=== PATIENT | female | born 1950 | race Caucasian/White ===

== ENCOUNTER 2021-01-08 10:57 | Outpatient (CLI) | payer MEDICARE, OTHER, SELFPAY ==
--- NOTE | ~2021-01-08 | US_ITS ---
EXAMINATION: US venous doppler [facility] DATE: 01/08/2021 11:30 INDICATION: Left lower limb pain and swelling. TECHNIQUE: Grayscale ultrasound images without and with compression and Doppler ultrasound images of the left lower extremity veins were obtained. COMPARISON: None. FINDINGS: The visualized portions of left common femoral vein, profunda (deep) femoral vein, femoral vein, popl iteal vein, peroneal veins, posterior tibial veins, and greater saphenous vein outflow are patent. IMPRESSION: 1. No deep venous thrombosis. Reviewed, dictated and finalized at location A. TERY WARDEN
== END 2021-01-08 10:58 | disposition home or self-care (01) ==
PROVIDERS: PCP Internal Medicine; Visit Provider Nurse Practitioner
DX: R60.9 Edema, unspecified (principal)
CPT/HCPCS: 93971

== ENCOUNTER → 2021-08-23 12:56 | Outpatient (CLI) | payer MEDICARE, OTHER, SELFPAY ==
--- NOTE | ~2021-08-23 | XR_ITS ---
EXAMINATION: XR thoracic spine 3V DATE: 08/23/2021 14:50 INDICATION: Thoracic back pain TECHNIQUE: AP, lateral and lateral swimmer's views of the thoracic spine were obtained. COMPARISON: None. FINDINGS: There is no fracture, dislocation, or subluxation. The vertebral body heights are maintaine d. There is mild loss of intervertebral disc space height at multiple levels in the thoracic spine. S mall degenerative osteophytes project from the anterior endplates of multiple vertebral bodies. IMPRESSION: 1. Mild thoracic spondylosis without acute findings. Reviewed, dictated and finalized at location A.
--- NOTE | ~2021-08-23 | MM_ITS ---
EXAMINATION: MM screening taiwo BI w molina HISTORY: Screening mammogram TECHNIQUE: Craniocaudal and mediolateral oblique 3-D tomosynthesis images were obtained and synthetic 2-D images were generated. CAD analysis was submitted and interpreted. COMPARISON: 08/11/2019 bilateral digital screening mammogram 01/12/2018 diagnostic left mammogram and limited left breast ultrasound 12/31/2017, 11/27/2016 bilateral digital screening mammogram examinations BREAST PARENCHYMAL COMPOSITION: There are scattered areas of fibroglandular density. FINDINGS: Stable mild fibroglandular asymmetry. There is no evidence of suspicious mass, calcificatio n, or architectural distortion to suggest malignancy in either breast. There has been no suspicious i nterval change. IMPRESSION: 1. No mammographic evidence of malignancy. 2. Recommend routine screening mammography in one year. BI-RADS Category 2: Benign finding(s). Reviewed, dictated and finalized at location A.
--- NOTE | ~2021-08-23 | DEXA_ITS ---
Bone Density Report Name: Jama Dimas Age: 71 Sex: Female Ethnicity: White Date of : 1950 Indication: postmenopausal; screening for osteoporosis; height loss; Referring Provider: Ashleigh Vega Study: Bone densitometry was performed. Exam Date: August 23, 2021 Accession number: [id number] Bone Density: Region BMD T-score Z-score Classification AP Spine (L1, L2, L3) 1.138 1.1 3.4 Normal Femoral Neck (Left) 0.787 -0.6 1.4 Normal Total Hip (Left) 0.918 -0.2 1.5 Normal Femoral Neck (Right) 0.803 -0.4 1.6 Normal Total Hip (Right) 0.928 -0.1 1.6 Normal Total Hip Mean 0.923 -0.2 1.6 Normal World Health Organization criteria for BMD impression classify patients as: Normal (T-score at or above -1.0), Osteopenia (T-score between -1.0 and -2.5), or Osteoporosis (T-score at or below -2.5). 10-year Fracture Risk: FRAX not reported because: All T-scores for Spine Total, Hip Total, Femoral Neck at or above -1.0 Clinical Information Provided by Patient: Has used the following medications: Vitamin D, Calcium, MTV, SYNTHROID Patient maximum height was 67.0 Menopause Age: 47 Drinks caffeinated beverages Onset of menses at age 9 Number of children 3 Impression: The patient has normal bone mass. Discussion: BONE DENSITY IS ABOVE THE MINIMUM DESIRABLE LEVEL AT ALL SKELETAL SITES TESTED. This patient?s bone mineral density is above the minimum desirable level (T-score -1.0 or better) at all sites measured. The patient should follow a healthful lifestyle (good nutrition with adequate calcium and vitamin D, and appropriate weight-bearing exercise). Follow-Up: Consider repeating this study in 5 years or sooner if there is some new clinical indication. Reported by: MILY on 08/23/2021 1:56:00 PM. Reviewed, dictated and finalized at location A.
== END ==
PROVIDERS: PCP Internal Medicine; Visit Provider Nurse Practitioner
DX: Z12.31 Encounter for screening mammogram for malignant neoplasm of breast (principal); Z78.0 Asymptomatic menopausal state; M47.894 Other spondylosis, thoracic region
CPT/HCPCS: 72072; 77063; 77067; 77080

== ENCOUNTER 2021-09-11 11:00 | Outpatient (RCR) | payer MEDICARE, OTHER, SELFPAY ==
--- NOTE | 2021-08-01 15:05 | PTOPEVAL ---
PHYSICAL THERAPY EVALUATION AND PLAN OF CARE 08-01-21 Thank you for referring Jama Dimas to [facility], for the diagnosis of B LE lymphedema. She is scheduled to be seen for therapy? 2 x/week for 5 weeks. Please review, sign, date and return this plan of care CHONG. I agree with and certify that the following plan of care is medically necessary. Referring Physician Date Attending Provider: Bryant Mojica DO PT Outpatient Evaluation Document 08/01/21 13:30 CHAVEZ (Rec: 08/01/21 15:04 CHAVEZ [id number]) Past Medical History Source of Past Medical History Patient Neurological History Hx Neurological Disorders No Significant History Cardiovascular History Hx Cardiac Disorders No Significant History Respiratory History Hx Respiratory Disorders No Significant History Gastrointestinal History Hx Cholecystectomy Yes Hx Gastric Bypass Surgery Yes: 5 year ago--lost 163# Genitourinary History Hx Bladder Surgery Yes: tie up surgery Musculoskeletal History Hx Arthritis Yes: knees and ankle Endocrine History Hx Hypothyroidism Yes: meds HEENT History Hx Other HEENT Disorders Yes: glasses Integumentary History Hx Skin Disorders No Significant History Other History Hx Other Medical Conditions Yes: have had covid vaccine Evaluation Information Problem Diagnosis B LE lymphedema Onset 6 months ago Prior Level of Function Activity Level (Last 3 Months) Occupation retired Activity of Daily Living Ability Independent Indoor/Home Mobility Independent Community Mobility Independent Stairs Ability Independent Functional Cognition (Planning, Shopping Independent , Taking Medications) Cooking Yes Cleaning Yes Laundry Yes Shopping Yes Driving Yes Home Setting Home Type House,Multiple Levels Living Situation With Spouse Mobility Assistive Devices (Used Last 3 None Months) Comments Additional Prior Level of Function difficulty on stairs, sit/stand, problems Comments walking distances; activity: 5x/wk- does exercises- water aerobics and fitness for wt loss; Pain Assessment Timing of Pain Assessment Timing of Pain Assessment Assessment Pain Scale Pain Scale Used Numeric (1 - 10) Self Report Pain Assessment Bilateral Leg(s) Reported Pain Level 7 Pain Frequency Chronic,Continuous Other Pain Description anterior shins and ankles;
--- NOTE | 2021-09-11 11:56 | PTOPEVAL ---
PHYSICAL THERAPY DISCHARGE 09-11-21 Refer to the clinical summary below, for her status today, compared to the initial evaluation. The goals were partially achieved. Thank you for referring Jama Dimas to [facility].? Please review, sign, date and return this Discharge summary CHONG. I agree with and certify that the following plan of care is medically necessary. Referring Physician Date Attending Provider: Bryant Mojica, Document 09/11/21 10:55 CHAVZE (Rec: 09/11/21 11:56 CHAVEZ [id number]) Assessment Status Discharge Subjective Information Liz reports: swelling is Query Text:As Reported By Patient/ less in her legs; is getting Family used to the leg garments; does not have the home pump yet-- hope it gets approved and can get one; doing self massage; have compression capris at home, that go below her knees, not wearing all time, only have one pair, lots of work to get on/off; continues to go fitness center- water exercises and garry-- 8 exercises classes/week; does not have any concerns about d/ c from therapy. Pain Assessment Timing of Pain Assessment Timing of Pain Assessment Assessment Pain Scale Pain Scale Used Numeric (1 - 10) Self Report Pain Assessment Bilateral Leg(s) Reported Pain Level 4 Pain Description Aching,Dull Pain Frequency Chronic,Continuous Other Pain Description R and L knees Pain Score Pain Score 4: Self Report Interventions Used Interventions Used By Clinicians Education Lower Extremity Range of Motion General Lower Extremity Range of Motion Gross Lower Extremity Range of Motion knee flexion R 85'/ L 90' both Comments increase pain R > L; Lymphedema Evaluation Skin Inspection Location Left Lower Extremity,Right Lower Extremity Skin Observations Lipedema Palpation Findings Warm Skin Temperature Lymphedema Stage I Skin Inspection Comment good skin color, no redness over legs increase adipose tissue over knees, thighs, hips; multiple areas of bruising and veins throughout both legs; edema over R and L medial and lateral malleoli
== END 2021-09-11 16:52 | disposition home or self-care (01) ==
LOC: ANHPT 11:00
PROVIDERS: PCP Internal Medicine; Visit Provider Internal Medicine
DX: I89.0 Lymphedema, not elsewhere classified (principal)
CPT/HCPCS: 29581; 97016; 97140; 97161

== ENCOUNTER 2022-03-13 09:14 | Outpatient (CLI) | payer MEDICARE, OTHER, SELFPAY ==
--- NOTE | ~2022-03-13 | XR_ITS ---
XR foot RT min 3V DATE: 03/13/2022 09:39 INDICATION: Pain at the ball of the right foot and third-fifth digits. Injury 2 weeks ago. TECHNIQUE: 4 views COMPARISON: None FINDINGS: Osteopenia. Very prominent plantar calcaneal enthesopathy without associated erosive change or periostitis. There is a prominent spur-like projection of the dorsal aspect of the anterior process of the talus. No fracture or dislocation, periosteal reaction or bone destruction is detected. No erosive change. IMPRESSION: Osteopenia Prominent plantar calcaneal enthesopathy Prominent bony projection at the dorsal aspect of the anterior process of the talus Reviewed, dictated and finalized at location B. IMPRESSION: Osteopenia Prominent plantar calcaneal enthesopathy Prominent bony projection at the dorsal aspect of the anterior process of the t alus
== END 2022-03-13 09:15 | disposition home or self-care (01) ==
PROVIDERS: PCP Internal Medicine; Visit Provider Internal Medicine
DX: M85.871 Other specified disorders of bone density and structure, right ankle and foot (principal); M77.31 Calcaneal spur, right foot
CPT/HCPCS: 73630

== ENCOUNTER → 2022-03-24 09:52 | Outpatient (CLI) | payer MEDICARE, OTHER, SELFPAY ==
--- NOTE | ~2022-03-24 | XR_ITS ---
EXAMINATION: XR knee RT 3V DATE: 03/24/2022 10:08 INDICATION: Pain in right leg. TECHNIQUE: 3 views of right knee including standing views were obtained. COMPARISON: None. FINDINGS: There is lateral subluxation of tibia with respect to distal femur. No fracture. There is s evere tricompartmental osteoarthritis. No knee joint effusion. IMPRESSION: 1. Severe right knee osteoarthritis. Reviewed, dictated and finalized at location A.
== END ==
PROVIDERS: PCP Internal Medicine; Visit Provider Internal Medicine
DX: M17.11 Unilateral primary osteoarthritis, right knee (principal)
CPT/HCPCS: 73562

== ENCOUNTER 2022-06-23 15:31 | Emergency (ER) | payer MEDICARE, OTHER, SELFPAY ==
--- NOTE | ~2022-06-23 | XR_ITS ---
EXAMINATION: XR abdomen obstructive series DATE: 06/23/2022 16:10 INDICATION: Abdominal pain and cramping TECHNIQUE: Upright and supine views of the abdomen were obtained. COMPARISON: None. FINDINGS: There is no free intraperitoneal gas. There are multiple mildly distended loops of small yumiko wel. The visualized lung bases are clear. Surgical clips in the right upper quadrant are likely from prior cholecystectomy. Gas and stool are present in the distal colon. IMPRESSION: 1. Mildly distended loops of small bowel, consistent with ileus versus partial obstruction. Reviewed, dictated and finalized at location B.
--- NOTE | 2022-06-23 15:43 | ED.ABDPAIN ---
HPI - Abdominal Pain General Chief Complaint: Abdominal Pain Stated Complaint: Weakness and Stomach Pain Time Seen by Provider: 06/23/22 15:43 Source: patient Mode of arrival: ambulatory Limitations: no limitations History of Present Illness HPI narrative: Ms. Dimas is a 72-year-old female patient presenting to the clinic today with complaints of abdominal cramping, diarrhea, and weakness. Symptoms began Thursday evening after eating some eggs. She reports she has felt clammy and had some chills but no known fever. She denies any known exposure to anybody with COVID, influenza, or strep. She denies any blood in her stool. Has had 4 explosive diarrhea stools today. Does not currently have any abdominal cramping and thinks that she has cramping prior to diarrhea episodes. She is passing gas. She denies any nausea or vomiting. Last colonoscopy was Related Data Home Medications Medication Instructions Recorded Confirmed cholecalciferol (vitamin D3) 25 1,000 unit PO DAILY 10/20/19 06/23/22 mcg (1,000 unit) tablet biotin 1,000 mcg chewable tablet 1,000 mcg PO DAILY 01/08/21 06/23/22 acetaminophen 500 mg tablet 500 mg PO Q6H PRN Pain 06/13/21 06/23/22 (Tylenol Extra Strength) Allergies Allergy/AdvReac Type Severity Reaction Status Date / Time Quinolones Allergy Intermediate Itching Verified 06/23/22 15:37 digoxin Allergy Unknown Palpitation Verified 06/23/22 15:37 s doxycycline Allergy Unknown Itching Verified 06/23/22 15:37 levofloxacin Allergy Unknown Palpitation Verified 06/23/22 15:37 s sulfamethizole Allergy Unknown Hives Verified 06/23/22 15:37 trimethoprim Allergy Unknown itching Verified 06/23/22 15:37 plastics Allergy Unknown itching Uncoded 06/23/22 15:37 Review of Systems Review of Systems: Pertinent positives per HPI. Patient denies any fever, chills, rash, headache, visual changes, dizziness, cough, runny nose, sore throat, shortness of breath, chest pain, palpitations, nausea, vomiting, diarrhea, constipation, abdominal pain, or any urinary issues. PMFSH Past Medical History Medical History Cholecystectomy planned Postmenopausal Screening for colon cancer Vertigo Surgical History Surgical History Gastric bypass status for obesity History of bladder surgery Family History Family History Mother Hypertension Family history of diabetes mellitus in first degree relative Family history of coronary artery disease Father Hypertension Family history of coronary artery disease Family history of heart disease in male family member before age 55 Grandparent Family history of malignant neoplasm Family history of heart disease in male family member before age 55 Other Family history of cardiovascular disease Social History Social History Smoking status: Never smoker Second hand tobacco smoke exposure: No Alcohol intake: never Substance use: never Substance use type: does not use Comments At the time of my signature, I reviewed and agree with the nursing past medical, surgical, social, and family history. There is no relevant family history pertinent to the patient complaint. Exam Narrative: General: Well-developed, obese, in no apparent distress. Head: Normocephalic, atraumatic. Cardio: Regular rate and rhythm, s1 and s2 normal, no murmur appreciated. Resp: Clear to auscultation bilaterally, no rhonchi, rales, wheezing or rubs. Abdomen: Well-healed scar midline from gastric bypass surgery, soft, pliable, bowel sounds present in all quadrants, non-tender to palpation, no organomegly, no CVAT tenderness. Course Course Emergency Course: Portions of this record may have been created with voice recognition software. Lisa
[2022-06-23 15:44] VITALS: BP 134/70; PULSE 78; RESP 18; TEMP 36.5; O2SAT 97
== END 2022-06-23 16:45 | disposition home or self-care (01) ==
PROVIDERS: Emergency Provider Nurse Practitioner Family; PCP Internal Medicine
DX: R19.7 Diarrhea, unspecified (principal); R10.9 Unspecified abdominal pain; R53.1 Weakness; Z20.822 Contact with and (suspected) exposure to COVID-19; E66.9 Obesity, unspecified; Z68.41 Body mass index [BMI] 40.0-44.9, adult; Z98.84 Bariatric surgery status
CPT/HCPCS: 74019; 87426; 99213; C9803; G0463

== ENCOUNTER → 2023-05-22 13:23 | Outpatient (CLI) | payer MEDICARE, OTHER, SELFPAY ==
--- NOTE | ~2023-05-22 | MM_ITS ---
EXAMINATION: MM screening taiwo BI w molina HISTORY: Screening TECHNIQUE: Craniocaudal and mediolateral oblique 3-D tomosynthesis images were obtained and synthetic 2-D images were generated. CAD analysis was submitted and interpreted. COMPARISON: Comparison to multiple prior studies sequentially, with oldest reviewed study dated 11/27. BREAST PARENCHYMAL COMPOSITION: Breast composed of scattered areas of fibroglandular density FINDINGS: There is no evidence of suspicious mass, calcification, or architectural distortion to sugg est malignancy in either breast. There has been no suspicious interval change. IMPRESSION: 1. No mammographic evidence of malignancy. 2. Recommend routine screening mammography in one year. BI-RADS Category 1: Negative Reviewed, dictated and finalized at location A.
== END ==
PROVIDERS: Visit Provider Family Medicine
DX: Z12.31 Encounter for screening mammogram for malignant neoplasm of breast (principal)
CPT/HCPCS: 77063; 77067

== ENCOUNTER 2023-06-16 12:01 | Emergency (ER) | payer MEDICARE, OTHER, SELFPAY ==
[2023-06-16 12:24] VITALS: BP 151/67; PULSE 61; RESP 16; TEMP 36.4; O2SAT 100
--- NOTE | 2023-06-16 13:17 | ED.EAR ---
HPI - Ear Problem General Chief complaint: Ear Stated complaint: bilateral ear discomfort Time Seen by Provider: 06/16/23 12:25 Source: patient, RN notes reviewed and old records reviewed Mode of arrival: ambulatory Limitations: no limitations History of Present Illness HPI Narrative: 73 year old female who presents to [facility] care with complaints of bilateral ear discomfort with left ear feeling clogged and with decreased hearing for one week duration Patient reports that she swims at the [facility] 5 times per week for exercise. Patient denies any sinus congestion, drainage , cough, sore throat or any body aches. Patient reports that she has been taking some Tylenol and NyQuil for her symptoms. MD Complaint: decreased hearing and other (left ear feels clogged, discomfort ears) Location: bilateral Duration: intermittent Discharge from ear: Reports no Treatment prior to arrival: oral analgesic and other (NyQuil) Related Data Home Medications Medication Instructions Recorded Confirmed cholecalciferol (vitamin D3) 25 1,000 unit PO DAILY 10/20/19 06/16/23 mcg (1,000 unit) tablet biotin 1,000 mcg chewable tablet 1,000 mcg PO DAILY 01/08/21 06/16/23 calcium carbonate 600 mg calcium 600 mg PO DAILY 06/27/22 06/16/23 (1,500 mg) tablet (Calcium) Allergies Allergy/AdvReac Type Severity Reaction Status Date / Time digoxin Allergy Unknown Palpitation Verified 06/16/23 12:28 s levofloxacin Allergy Unknown Palpitation Verified 06/16/23 12:28 s doxycycline AdvReac Mild Itching Verified 06/16/23 12:28 Quinolones AdvReac Mild Itching Verified 06/16/23 12:28 sulfamethizole AdvReac Mild Hives Verified 06/16/23 12:28 trimethoprim AdvReac Mild itching Verified 06/16/23 12:28 plastics AdvReac Mild itching Uncoded 06/16/23 12:28 Review of Systems Review of Systems: CONSTITUTIONAL: Denies malaise, chills, sweats, or fever. EYES: Denies visual changes, redness, or discharge. ENT: Reports mild rhinorrhea, congestion,no sinus pain,positive otalgia and no sore throat. CARDIOVASCULAR: Denies chest pain, palpitations, or edema. RESPIRATORY: Reports no cough.? Denies dyspnea. GASTROINTESTINAL: Denies abdominal pain, nausea, vomiting, diarrhea SKIN: Denies rash or itching. MUSCULOSKELETAL: Denies myalgia. NEUROLOGIC: Denies headache. All systems reviewed & are unremarkable except as noted in HPI and below PMFSH Past Medical History Medical History (Updated 06/17/23 @ 07:53 by Fifi Freeman NP) Cholecystectomy planned ANGEL on CPAP Postmenopausal Screening for colon cancer Vertigo Surgical History Surgical History (Updated 06/17/23 @ 07:48 by Fifi Freeman NP) Gastric bypass status for obesity History of bladder surgery History of cholecystectomy Family History Family History Mother Hypertension Family history of diabetes mellitus in first degree relative Family history of coronary artery disease Father Hypertension Family history of coronary artery disease Family history of heart disease in male family member before age 55 Grandparent Family history of malignant neoplasm Family history of heart disease in male family member before age 55 Other Family history of cardiovascular disease Social History Social History Smoking status: Never smoker Second hand tobacco smoke exposure: No Alcohol intake: never Substance use: never Substance use type: does not use Comments At time of signature, agree with nursing past medical, surgical, social and family history. There is no relevant family history pertinent to the presenting complaint Exam Narrative: GENERAL: Well-appearing, well-nourished,obese, and in no acute distress. HEAD: Normocephalic EYES: PERRLA, conjunctivae clear ENT: Nares clear, turbinates edematous and erythematous, clear discharge. Mucous me
== END 2023-06-16 13:29 | disposition home or self-care (01) ==
PROVIDERS: Emergency Provider Registered Nurse; PCP Family Medicine
DX: H60.92 Unspecified otitis externa, left ear (principal); H61.22 Impacted cerumen, left ear; G47.33 Obstructive sleep apnea (adult) (pediatric); Z98.84 Bariatric surgery status; E66.9 Obesity, unspecified; Z68.41 Body mass index [BMI] 40.0-44.9, adult
CPT/HCPCS: 69209; 99213; G0463

== ENCOUNTER 2023-10-14 11:37 | Emergency (ER) | payer MEDICARE, OTHER, SELFPAY ==
[2023-10-14 12:18] VITALS: BP 152/59; PULSE 63; RESP 16; TEMP 35.7; O2SAT 100
--- NOTE | 2023-10-14 12:27 | ED.GENADULT ---
HPI - General Adult General Chief complaint: Eye Problems Stated complaint: eye injury Time Seen by Provider: 10/14/23 12:27 Source: patient, RN notes reviewed and old records reviewed Mode of arrival: ambulatory Limitations: no limitations History of Present Illness HPI narrative: 73-year-old patient presents to [facility] with complaints of redness in right eye this started yesterday after eating outside of eye with right ear and wear. Patient denies pain, patient denies visual changes. MD complaint: Eye redness Onset (ago): day(s) (1) Related Data Home Medications Medication Instructions Recorded Confirmed biotin 1,000 mcg chewable tablet 1,000 mcg PO DAILY 01/08/21 06/16/23 calcium carbonate 600 mg calcium 600 mg PO DAILY 06/27/22 06/16/23 (1,500 mg) tablet (Calcium) acetaminophen 500 mg tablet 1,000 mg PO Q6H 09/16/23 (Tylenol Extra Strength) dietary supplement cap PO 09/16/23 [id number] 45 mg-folic cap PO 09/16/23 acid 800 mcg-vit K 120 mcg capsule (Bariatric Multivitamins) Allergies Allergy/AdvReac Type Severity Reaction Status Date / Time digoxin Allergy Unknown Palpitation Verified 10/14/23 12:31 s levofloxacin Allergy Unknown Palpitation Verified 10/14/23 12:31 s doxycycline AdvReac Mild Itching Verified 10/14/23 12:31 Quinolones AdvReac Mild Itching Verified 10/14/23 12:31 sulfamethizole AdvReac Mild Hives Verified 10/14/23 12:31 trimethoprim AdvReac Mild itching Verified 10/14/23 12:31 plastics AdvReac Mild itching Uncoded 09/16/23 13:47 Review of Systems Constitutional: Constitutional: Reports no additional constitutional complaints Eyes: Eyes: Reports as per HPI, Denies blurry vision, Denies exophthalmos, Denies change in vision, Denies decreased night vision, Denies diplopia, Denies eye discharge, Denies irritation, Denies itchy eyes, Denies loss of vision and Denies other visual disturbances Comments: eye redness ENT: Reports system reviewed and no additional complaints, except as documented Cardiovascular: Cardiovascular: Reports no additional cardiovascular complaints Respiratory: Respiratory: Reports no additional respiratory complaints Neurologic: Reports system reviewed and no additional complaints, except as documented PMFSH Past Medical History Medical History Cholecystectomy planned ANGEL on CPAP Postmenopausal Screening for colon cancer Vertigo Surgical History Surgical History Gastric bypass status for obesity History of bladder surgery History of cholecystectomy Family History Family History Mother Hypertension Family history of diabetes mellitus in first degree relative Family history of coronary artery disease Father Hypertension Family history of coronary artery disease Family history of heart disease in male family member before age 55 Grandparent Family history of malignant neoplasm Family history of heart disease in male family member before age 55 Other Family history of cardiovascular disease Social History Social History Smoking status: Never smoker Second hand tobacco smoke exposure: No Alcohol intake: never Substance use: never Substance use type: does not use Comments At the time of my signature, I reviewed and agree with the nursing past medical, surgical, social, and family history. There is no relevant family history pertinent to the patient complaint. Exam Const: General: cooperative, healthy appearing, no acute distress and well nourished Nutritional Appearance: well nourished Orientation/consciousness: patient oriented x3 Limitations: no limitations HENMT: Head: normal to inspection and normocephalic Ears: external ears normal, TM's normal bilaterally, mas
== END 2023-10-14 12:51 | disposition home or self-care (01) ==
PROVIDERS: Emergency Provider Registered Nurse; PCP Family Medicine
DX: H11.31 Conjunctival hemorrhage, right eye (principal); G47.33 Obstructive sleep apnea (adult) (pediatric); E66.9 Obesity, unspecified; Z68.41 Body mass index [BMI] 40.0-44.9, adult; Z98.84 Bariatric surgery status
CPT/HCPCS: 99212; G0463

== ENCOUNTER 2023-12-29 11:11 | Outpatient (CLI) | payer MEDICARE, OTHER, SELFPAY ==
--- NOTE | ~2023-12-29 | XR_ITS ---
EXAMINATION: XR ribs RT 2V INDICATION: Pleurodynia TECHNIQUE: Four views of the right ribs were obtained. COMPARISON: 05/22/2016 FINDINGS: No displaced rib fracture is identified. The right lung is clear. There is mild osteoarthri tis of the right shoulder. Surgical clips in the right upper quadrant are likely from prior cholecyst ectomy. IMPRESSION: 1. No displaced rib fracture identified. Reviewed, dictated and finalized at location L. RN
--- NOTE | ~2023-12-29 | XR_ITS ---
EXAMINATION: XR thoracic spine 3V DATE: 12/29/2023 12:06 INDICATION: Pleurodynia. Right lower rib pain. Right flank pain. TECHNIQUE: 3 views of the thoracic spine on 4 radiographs were obtained. COMPARISON: Thoracic spine radiographs 08/23/2021 FINDINGS: There is 11 degrees dextroscoliosis of thoracic spine. Vertebral body heights are normal. T here is mild to moderately decreased disc height at multiple levels in thoracic spine. There are endp late osteophytes at most levels. Surgical clips in the right upper quadrant are likely from cholecyst ectomy. IMPRESSION: 1. Moderate thoracic spondylosis. 2. Thoracic dextroscoliosis. Reviewed, dictated and finalized at location A. ER REPAIRER MACHINE
--- NOTE | ~2023-12-29 | XR_ITS ---
EXAMINATION: XR hip RT min 2V DATE: 12/29/2023 12:05 INDICATION: Right hip pain TECHNIQUE: Two views of right hip were obtained. COMPARISON: None. FINDINGS: Bone alignment is normal. There is no fracture. Osteitis pubis is noted. There is at least moderate lower lumbar spondylosis. IMPRESSION: 1. No acute osseous abnormality. Reviewed, dictated and finalized at location L. ING MACHINE OPERATOR
--- NOTE | ~2023-12-29 | CT_ITS ---
EXAMINATION: CT brain wo con DATE: 12/29/2023 12:15 INDICATION: Dizziness. Headache. TECHNIQUE: Computed tomography (CT) of the head was performed without intravenous contrast. The mA wa s adjusted according to patient size. Iterative reconstruction technique was employed. The dose-lengt h product was 605.33 mGy-cm. COMPARISON: None FINDINGS: There is no intracranial hemorrhage, acute infarction, or abnormal intracranial mass lesion . The ventricles are normal in size. The paranasal sinuses are clear. The mastoid air cells are petr l. There are likely changes of ocular lens replacement surgeries. IMPRESSION: 1. Normal brain. Reviewed, dictated and finalized at location A. CURRENT INSPECTOR IMPRESSION: 1. Normal brain.
== END 2023-12-29 11:12 | disposition home or self-care (01) ==
LOC: ANHIMG 11:17
PROVIDERS: PCP Family Medicine; Visit Provider Nurse Practitioner Family
DX: R51.9 Headache, unspecified (principal); R42 Dizziness and giddiness; R07.81 Pleurodynia; M25.559 Pain in unspecified hip; M54.9 Dorsalgia, unspecified; M47.894 Other spondylosis, thoracic region
CPT/HCPCS: 70450; 71100; 72072; 73502

== ENCOUNTER 2024-03-10 09:45 | Outpatient (RCR) | payer MEDICARE, OTHER, SELFPAY ==
--- NOTE | 2024-02-03 08:48 | OPREHPOC ---
Outpatient Therapy Plan of Care This is a Multidisciplinary Plan of Care that may contain components documented by all disciplines (PT, OT, and ST.) PT Problem 1 PT Problem #1 Knowledge Deficit PT Goal 1 Goal *indep with HEP * good safety awareness with mobility PT Problem 2 PT Problem #2 Impaired Vestibular Syste PT Goal 1 Goal pt perform without any vestibular symptoms: 1* supine/sit transfer 2* lean trunk forward in standing 3* report no problems with driving or passenger in car 4* Dizziness Handicap Index rating of 34% limitation 5* further assessment of vestibular system as indicated
--- NOTE | 2024-02-03 08:49 | PTOPEVAL1 ---
Assessment and note entered by Yuni Batres, PT Evaluation Information Assessment Status Evaluation Diagnosis dizziness Onset December 2023 Subjective Information increase in dizziness with recent illness---UTI, shingles over her trunk, sinus infection; have completed all meds for infections. Dizziness Handicap Index score of 60/100; take meclazine PRN- do not think it helps much; have had history of crystals in her ears 1x- got treatment and it was OK; she feels hearing and vision OK; Medical history: sinus issues, infections, Activity: use cane due to knee pain; have not gone to [facility] due to dizziness and shingles; assisting with home chores; symptoms: head stuffy, off balance, teetering when walk, dizzy increase symptoms: bending forward, darkness, end of day/tired, riding in the car decrease symptoms: hold onto something when walking Reported Pain Level Pain Score 2: Self Report Additional Pain Score Comments pain in R hip, L foot and legs; some back pain Assessment PT Clinical Summary Jama has the diagnosis of dizziness. She reports onset about 6 weeks ago with sinus infection, UTI and shingles over her trunk. Dizziness Handicap Index of 60% limitation in activity level. She has had BPPV in the past. With the evaluation: testing was positive for L horizontal canal BPPV; canal repositioning performed with BBQ roll and education to pt. She has decreased gait and balance skills, with back, hip, knee and R foot pain reported and uses a cane. Skilled PT services are indicated for vestibular treatment: to start with BPPV and further assessment of her vestibular system, may have vestibular nerve irritation from infections. Education for home exercises and education for safety with mobility. Plan of Care Interventions Ne
--- NOTE | 2024-03-10 13:03 | PTOPDC ---
Assessment and note entered by Yuni Batres, PT Discharge Information Assessment Status Discharge Diagnosis dizziness Onset December 2023 Subjective Information talked with pt during the treatment session today with HOSPITAL DIRECTOR; she stated she still has some dizziness when turning her head too fast and when leaning down; and with driving or being a passenger in the car; has been doing the leg exercises at home; has not had any falls, continues to use the cane for walking. She wants today to be her last day of therapy. Reported Pain Level Pain Score 2: Self Report Assessment PT Clinical Summary Jama has received 8 PT sessions. During today's PT treatment session, she requested that today be her last day of therapy. The Dizziness Handicap Index self rating has improved from 60% to 54% limitation; canal repositioning of Horizontal Canal was performed with pt and decreased her dizziness slightly; she continues to also report unsteady, off balance and issues with walking. She continues to have pain in her back and both knees. The goals were partially met. Discharge PT services. She is to continue with her HEP and safety techniques to manage her dizziness and off balance symptoms. Plan of Care PT Services Indicated No
== END 2024-03-10 13:42 | disposition home or self-care (01) ==
LOC: ANHPT 09:45
PROVIDERS: PCP Family Medicine; Visit Provider Nurse Practitioner Family
DX: H81.12 Benign paroxysmal vertigo, left ear (principal)
CPT/HCPCS: 95992; 97110; 97112; 97116; 97140; 97161; 97530

== ENCOUNTER 2024-07-05 12:32 | Outpatient (CLI) | payer MEDICARE, OTHER, SELFPAY ==
--- NOTE | ~2024-07-05 | MM_ITS ---
EXAMINATION: MM screening taiwo BI w molina HISTORY: Screening TECHNIQUE: Craniocaudal and mediolateral oblique 3-D tomosynthesis images were obtained and synthetic 2-D images were generated. CAD analysis was submitted and interpreted. COMPARISON: Comparison to multiple prior studies sequentially, with oldest reviewed study dated 11/27. BREAST PARENCHYMAL COMPOSITION: Not dense: There are scattered areas of fibroglandular density. FINDINGS: There is no evidence of suspicious mass, calcification, or architectural distortion to sugg est malignancy in either breast. There has been no suspicious interval change. IMPRESSION: 1. No mammographic evidence of malignancy. 2. Recommend routine screening mammography in one year. BI-RADS Category 1: Negative Reviewed, dictated and finalized at location B.
== END 2024-07-05 12:33 | disposition home or self-care (01) ==
LOC: MICIMG 12:33
PROVIDERS: PCP Family Medicine; Visit Provider Family Medicine
DX: Z12.31 Encounter for screening mammogram for malignant neoplasm of breast (principal)
CPT/HCPCS: 77063; 77067

== ENCOUNTER 2025-07-09 10:19 | Emergency (ER) | payer OTHER, MEDICARE, SELFPAY ==
--- OUTSIDE RECORDS SUMMARY | 2009-07-10 09:00 | XMS_ITS | Continuity of Care Document ---
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 Name Role Phone Daisha Parrish Unavailable Unavailable Procedures Procedure Date Eye Exam & Treatment Refraction Eye Exam & Treatment Refraction Eye Exam Established Pt Advance Directives Directive Yes / No Effective Date File Name No Information Encounters Encounter Description Practice Location Reason(s) For Visit Diagnoses Date Provider Providers Copied on Encounter [facility], [address] [place] [address] [address], [place], [place], [id number], tel:[phone] [facility] No Information [phone] Shivani Basilio [address] , [address], [place], [place], [facility], . tel:[phone] [facility], [address] [place] [address] [address], [place], [place], [id number], [place] tel:[phone] [facility] No Information 5200 8 Shivani Basilio [address] , [address], [place], [place], [facility], . tel:[phone] [facility], [address] [place] [address] [address], [place], [place], [id number], tel:[phone] [facility] No Information 0-200 7 Shivani Ashton. [address] , [address], [place], [address], [place]. tel:[phone] Family History Family Member Type Diagnosis Age At Onset No Information Payers Payer name Insurance type Covered green party ID Authoriza tion(s) No Information Social History Type Description Quantity Date Captured Comments Sex Female Smoking Status No Information Chief Complaint And Reason For Visit No Information Reason For Referral Reason For Referral No Information History Of Present Illness Encounter Date Complaint History Of Prese nt Illness No Information Functional Status Date Functional Assessmen t No Information Instructions Date Instruction Additional Infor mation No Information Assessments Type Assessment Date No Information Patient Care Teams Name Effective Dates (start - stop) Status Members No Information
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
--- OUTSIDE RECORDS SUMMARY | 2025-07-09 10:21 | XMS_ITS ---
Author Name Auto Generated, Auto Generated Organization [facility] Address [address] [place] [address] Care Team Providers Care Enterprise Engineer Name Role Phone Miguel Boo Internal Medicine [phone] Nolan Zarate Certifying Physician [facility] Rachael Juárez Unavailable Wendy Yao Unavailable Unavailable Karel Medellin Unavailable Unavailable Maggie Mahajan Unavailable Unavailable Allergies and Intolerances Name Onset Reaction Severity trimethoprim 2024-10-16 17:02:00 trimethoprim 2024-10-16 17:02:00 sulfamethizole 2024-10-16 17:02:00 Quinolones 2024-10-16 17:01:00 Lanoxin 2024-10-16 17:01:00 Plasticized Ointment Base 2024-10-16 17:01:00 Sulfa (Sulfonamide Antibiotics) 2024-10-16 17:01:00 Levaquin 2024-10-16 17:01:00 doxycycline 2024-10-16 17:01:00 Care Team Name Role NPI Start Date Miguel Boo Internal Medicine [phone] 2024-10-11 00:00:00 Nolan Zarate Certifying Physician [facility] [phone] [id number] 2024-10-11 00:00:00 Rachael Juárez Care Enterprise Engineer Wendy Yao Care Enterprise Engineer Karel Medellin Care Enterprise Engineer Maggie Mahajan Care Enterprise Engineer Encounters Admissions Program Name Primary Diagnosis Admission Date Discharg e Date Home Care 2024-10-22 00:00:00 23:59:59 Visits Service Program Provider Start End Home Care Wendy Yao 2024-10-22 17:43:00 2023 20:07:00 Home Care Rachael Juárez 2024-10-23 17:12:00 02-11-22 18:20:00 Home Care Maggie Mahajan 2024-10-23 20:01: 00 2024-10-23 20:54:00 Home Care Karel Medellin 2024-10-25 16:55:00 2 17:45:00 Home Care Wendy Yao 2024-10-28 17:22:00 2023 18:15:00 Home Care Karel Medellin 2024-10-28 19:00:00 2 19:48:00 Home Care Karel Medellin 2024-10-31 16:25:00 2 17:12:00 Home Care Rachael Juárez 2024-10-31 18:00:00 02-11-30 18:43:00 Home Care Karel Medellin 2024-11-01 16:25:00 2 17:05:00 Home Care Wendy Yao 2024-11-03 15:23:00 2024 16:28:00 Home Care Karel Medellin 2024-11-04 16:15:00 2 17:10:00 [facility] 2024-11-08 18:10: 00 2024-11-08 19:08:00 Home Care [facility] 2024-11-10 17:05: 00 2024-11-10 18:06:00 Medications Medication Instructions Start Date End Date acetaminophen 500 mg tablet 2 TAB TABLET Oral 3 Times Daily TID X 10 DAYS, THEN PRN MILD PAIN 2024-10-22 06:00:00 2024-11-10 06:00:00 Aspir-Low 81 mg tablet,delayed release 1 TAB TABLET, DELAYED RELEASE (ENTERIC COATED) Oral 2 Times Daily for 42 Days 2024-10-22 06:00:00 2024-11-10 06:00:00 omeprazole 20 mg capsule,delayed release 1 CAP CAPSULE,DELAYED RELEASE (ENTERIC COATED) Oral Every 1 Day for 42 Days 2024-10-22 06:00:00 2024-11-10 06:00:00 oxyCODONE 10 mg tablet 0.5- 1 TAB TABLET Oral PRN Every 4 Hours PRN MODERATE PAIN 2024-10-22 06:00:00 2024-11-10 06:00:00 Calcium with Vit D3 600 mg (as carbonate)-12.5 mcg (500 unit) capsule 2 CAP CAPSULE Oral Every 1 Day 2024-10-22 06:00:00 2024-11-10 06:00:00 celecoxib 200 mg capsule 1 CAP CAPSULE O ral 2 Times Daily 2024-10-22 06:00:00 2024-11-10 06:00:00 cetirizine 10 mg tablet 1 TAB TABLET Ora l Every 1 Day 2024-10-22 06:00:00 2024-11-10 06:00:00 Flonase 50 mcg/actuation nasal spray,suspension 2 SPRAYS SPRAY, SUSPENSION Intranasal Every 1 Day 2024-10-22 06:00:00 2024-11-10 06:00:00 levothyroxine 125 mcg tablet 1 TAB TABLET Oral Every 1 Day 2024-10-22 06:00:00 2024-11-10 06:00:00 Bariatric Multivitamins 45 mg iron-800 mcg-120 mcg capsule 1 CAP CAPSULE Oral Every 1 Day 2024-10-22 06:00:00 2024-11-10 06:00:00 Miralax 17 gram oral powder packet 17 GRAM POWDER IN PACKET (EA) Oral PRN Every 1 Day PRN CONSTIPATION 2024-10-22 06:00:00 2024-11-10 06:00:00 Colace 100 mg capsule 1 CAP CAPSULE Oral 2 Times Daily HOLD FOR LOOSE STOOLS 2024-10-22 06:00:00 2024-11-10 06:00:00 Milk of Magnesia 400 mg/5 mL oral suspension 30 ML SUSPENSION, ORAL (FINAL DOSE FORM) Oral PRN Every 1 Day PRN CONSTIPATION 2024-10-22 06:00:00 2024-11-10 06:00:00 Problems Active Concerns Problem Code Start Date End Date Text Aftercare following joint replacement surgery Aftercare following joint replacement surgery 2024-10-21 00:00:00 Other longterm (current) drug therapy Other salvage determiner (current) drug therapy 2024-10-22 00:00:00 Personal history of other venous thrombosis and embolism Personal history of other venous thrombosis and embolism 2024-10-22 00:00:00 Encounter for removal of sutures Encounter for removal of sutures 2024-10-22 00:00:00 Body mass index [BMI]40.0-44.9, adult Body mass index [BMI]40.0-44.9, adult 2024-10-22 00:00:00 Morbid (severe) obesity due to excess calories Morbid (severe) obesity due to excess calories 2024-10-22 00:00:00 Obstructive sleep apnea (adult) (pediatric) Obstructive sleep apnea (adult) (pediatric) 2024-10-22 00:00:00 Hyperlipidemia, unspecified Hyperlipidemia, unspecified 2024-10-22 00:00:00 Gastro-esophageal reflux disease without esophagitis Gastro-esophageal reflux disease without esophagitis 2024-10-22 00:00:00 Other seasonal allergic rhinitis Other seasonal allergic rhinitis 2024-10-22 00:00:00 Unilateral primary osteoarthritis, left knee Unilateral primary osteoarthritis, left knee 2024-10-22 00:00:00 Dorsalgia, unspecified Dorsalgia, unspecified 2024-10-22 0 0:00:00 Other chronic pain Other chronic pain 2024-10-22 00:00:00 Carpal tunnel syndrome, unspecified upper limb Carpal tunnel syndrome, unspecified upper limb 2024-10-22 00:00:00 Hypothyroidism, unspecified Hypothyroidism, unspecified 2024-10-22 00:00:00 Depression, unspecified Depression, unspecified 2024-10-22 00:00:00 Essential (primary) hypertension Essential (primary) hypertension 2024-10-22 00:00:00 Presence of right artificial knee joint Presence of right artificial knee joint 2024-10-22 00:00:00 Social History Observation Description Date Sex Female 1950 00:00 :00 Sex Female
[2025-07-09 10:37] VITALS: BP 170/62; PULSE 69; RESP 18; TEMP 36.4; O2SAT 98
--- NOTE | 2025-07-09 10:40 | ECG_ITS ---
Test Date: 2025-07-09 10:51:29 Measurements Intervals [place] Rate: 70 P: 194 ID: [id number] QRS: 195 QRSD: 106 T: 149 QT: 389 QTc: 420 Interpretive Statements CONSIDER LIMB LEAD REVERSAL No previous ECG available for comparison Electronically Signed On 07-09-2025 16:07:00 CDT by Zohaib Rivas M.D.
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
--- OUTSIDE RECORDS SUMMARY | 2025-07-09 11:18 | XMS_ITS ---
Author Name Auto Generated, Auto Generated Organization [facility] Address [address] [place] [address] Care Team Providers Care Addiction Psychiatrist Name Role Phone Miguel Boo Internal Medicine [phone] Nolan Zarate Certifying Physician [facility] Rachael Juárez Unavailable Wendy Yao Unavailable Unavailable [...] NPI Start Date Miguel Boo Internal Medicine [id number] 2024-10-11 00:00:00 Nolan Zarate Certifying Physician [facility] [phone] [id number] 2024-10-11 00:00:00 Rachael Juárez Care Addiction Psychiatrist Wendy Yao Care Addiction Psychiatrist Karel Medellin Care Addiction Psychiatrist Maggie Mahajan Care Addiction Psychiatrist Encounters Admissions Program Name Primary Diagnosis Admission [...] 2024-11-04 16:15:00 2 17:10:00 [facility]24-[facility]-08 18:10: 00 2024-11-08 19:08:00 Home Care [facility] 2024-11-10 17:05: 00 2024-11-10 18:06:00 Medications [...] following joint replacement surgery 2024-10-21 00:00:00 Other halfway (current) drug therapy Other intermediate frame tender (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
--- OUTSIDE RECORDS SUMMARY | 2025-07-09 11:18 | XMS_ITS ---
Author Name Auto Generated, Auto Generated Organization [facility] Address [address] [address] Care Team Providers Care Automotive Diagnostic Technician Name Role Phone Miguel Boo Internal Medicine [phone] Nolan Zarate Certifying Physician [facility] Rachael Juárez Unavailable Wendy Yao [...] NPI Start Date Miguel Boo Internal Medicine [id number] 2024-10-11 00:00:00 Nolan Zarate Certifying Physician [facility] [id number] 2024-10-11 00:00:00 Rachael Juárez Care Automotive Diagnostic Technician Wendy Yao Care Automotive Diagnostic Technician Karel Medellin Care Automotive Diagnostic Technician Maggie Mahajan Care Automotive Diagnostic Technician Encounters Admissions Program Name Primary Diagnosis Admission [...] 2024-11-04 16:15:00 2 17:10:[facility]24-[facility]-08 18:10: 00 2024-11-08 19:08:00 Home Care [facility] 2024-11-10 17:05: 00 2024-11-10 18:06:00 Medications [...] following joint replacement surgery 2024-10-21 00:00:00 Other senior living (current) drug therapy 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
[2025-07-09 12:00] VITALS: BP 141/65; PULSE 64; RESP 18; O2SAT 94
[2025-07-09 12:03] LABS: Hematocrit 39.3 % (37.0-47.0); Hemoglobin 12.7 g/dL (12.0-15.0); Immature Granulocyte Percent A 0.6 % (0-0.5); Lymphocytes Absolute Auto 0.75 K/mm3 (0.9-3.2); Mean Corpuscular HGB Conc 32.3 g/dl (32-36); Mean Corpuscular Hemoglobin 31.8 pg (26-34); Mean Corpuscular Volume 98.5 fl (80-100); Nucleated Red Blood Cells Absolute Auto 0.000 K/mm3 (0.0-0.012); Nucleated Red Blood Cells Perc 0.0 % (0.0-0.2); Platelet Count Result 236 k/mm3 (150-375); Red Blood Count 3.99 M/mm3 (4.2-5.4); White Blood Count 6.3 K/mm3 (4.5-10.0)
[2025-07-09 12:14] LABS: Alanine Aminotransferase 23 U/L (6-35); Albumin Level 4.3 g/dL (3.5-5.1); Alkaline Phosphatase 103 U/L (38-126); Anion Gap 8 mmol/L (4-12); Aspartate Amino Transferase 37 U/L (14-36); Bilirubin,Total 0.4 mg/dL (0.2-1.3); Blood Urea Nitrogen 16 mg/dL (7-17); Calcium 9.1 mg/dL (8.4-10.2); Carbon Dioxide 26 mmol/L (22-30); Chloride 106 mmol/L (98-107); Estimated Glomerular Filt Rate > 60; Glucose 101 mg/dL (65-110); Potassium 4.2 mmol/L (3.4-5.0); Sodium 140 mmol/L (137-145); Total Protein 7.4 g/dL (6.3-8.2)
[2025-07-09 12:19] LABS: INR 1.0; Prothrombin Time 13.6 Seconds (11.1-14.7)
[2025-07-09 12:20] LABS: Partial Thromboplastin Time 28.0 Seconds (22.3-36.8)
[2025-07-09 12:25] LABS: Troponin I < 0.012 ng/mL (0.000-0.034)
--- NOTE | 2025-07-09 13:42 | PC.NURSE ---
Patient accepted to [facility] ER under Dr Mcqueen. Report given to RAZIA Bain at [facility]. [facility] in route to transport patient
== END 2025-07-09 14:13 | disposition short-term general hospital (02) ==
PROVIDERS: Emergency Provider Registered Nurse; PCP Family Medicine
DX: S22.20XA Unspecified fracture of sternum, initial encounter for closed fracture (principal); I10 Essential (primary) hypertension; Z98.84 Bariatric surgery status; Z96.651 Presence of right artificial knee joint; Z96.612 Presence of left artificial shoulder joint; G47.33 Obstructive sleep apnea (adult) (pediatric); M17.0 Bilateral primary osteoarthritis of knee; Z90.49 Acquired absence of other specified parts of digestive tract; Z77.22 Contact with and (suspected) exposure to environmental tobacco smoke (acute) (chronic); V49.40XA Driver injured in collision with unspecified motor vehicles in traffic accident, initial encounter
CPT/HCPCS: 36415; 71046; 71250; 72131; 73030; 74176; 80053; 84484; 85025; 85610; 85730; 93005; 99285

== ENCOUNTER 2025-10-30 10:37 | Emergency (ER) | payer MEDICARE, OTHER, SELFPAY ==
[2025-10-30 10:49] VITALS: BP 156/86; PULSE 63; RESP 16; TEMP 36.4; O2SAT 98
--- OUTSIDE RECORDS SUMMARY | 2025-10-30 11:08 | XMS_ITS | Data Portability ---
Author Organization [place] [facility] [address], Main Office Address [address] [place] [address] Care Team Providers Care Buildings And Grounds Director Name Role Phone MELY TILLMAN Primary Care Provider MELY TILLMAN Referring Provider [phone] JONATAN BOND Referring Provider [phone] Assessment Encounter Date Assessment Date Assessment LastModified by Organization Details LastModified Time 03/11/2023 03/11/2023 impression: Patient has advanced osteoarthritis of her right knee. We talked about the importance of weight loss and she has not been compliant with modifying her daily caloric intake. She has been doing a lot of water aerobics and enjoys this thoroughly but this is not resulting in her losing weight and I advised her that she is going to have to cut back on her daily caloric intake in order to lose weight. We discussed this at length. Her bigger complaint is right forefoot pain. X-rays show periosteal focal bone formation consistent with stress fracture mid right 3rd metatarsal radiographically. It has the identical appearance compared with x-rays on 03/13/2022 indicating she likely had a stress fracture that was already either subacute or chronic at that time. It is certainly possible that she may have a recurrent stress reaction at the site of her previous stress fracture. Of all of her activities the jumping and landing hard on the cement bottom of the pool is likely causing problems for her forefoot and I would recommend she avoid jumping any impact. A stiff-soled shoe may be helpful or a Darco shoe. I am going to refer her to Dr. Cohn for further evaluation. 30 minutes were spent in total care this patient with more than half this time spent in hztc-pr-lsml care the majority of the time discussing strategies for weight loss [email or web address] Not available 03/19/2023 16:43:31 05/04/2023 05/04/2023 This note is dictated and transcribed by Vlad [employer]. Pocket Closer variances may occur. Despite proofreading, typographical errors may occur. [email or web address] Not available 05/06/2023 15:00:51 08/21/2023 08/21/2023 HPI: Patient returns. She is here for cortisone injection right knee. Last shot was in December this year. Shot worked very well up until about 6 weeks ago. She has not worked on getting her weight down and is still too heavy to discuss surgical option on her knee. She wished to have another injection today. Physical exam: 73-year-old female alert pleasant. She walks with a cane. She has a palpable mild to moderate effusion in the right knee. She has very large legs both through the thigh and calf. She has moderate tenderness over the lateral joint line to palpation mild tenderness over the medial joint line to palpation. Range of motion is approximately 10-120 degrees. After ChloraPrep was used on the skin 20 mg Kenalog and 3 cc of 0.5% ropivacaine was injected into the right knee. Risk of infection discussed. Impression: 73-year-old female who has rather advanced osteoarthritis in the right knee. She is qqnl-yj-tssu to the medial and lateral compartment. She was told last time she was here that she would need to have her weight at 235 lb or under for her BMI to be under 40. She is going to have to work on reducing caloric intake. She does go to the pool 5 days a week for aerobics which helps a lot for her. She can repeat cortisone injections as often as every 3 months. She will call she feels she needs additional injection. 20 minutes was spent treatment patient more than half of this in awzu-sn-qdis conversation Not available 08/21/2023 11:37:15 11/18/2023 11/18/2023 HPI: Patient returns. She is here for cortisone injections in both her knees. Last shots were 3 months ago. She has severe bicompartmental osteoarthritis in the right knee and moderately severe lateral arthritis in the left. She is not a surgical candidate due to weight. She is not on any anti-inflammatorie s due to history of gastric bypass. Shots continue to give her good benefit and she wishes to continue with these. Physical exam: 73-year-old female alert pleasant. She walks with a cane. She has mild palpable effusions in both knees. She has mild chronic edema in both lower extremities. She has bdui-xh-zuogbnzj tenderness to palpation both medial and lateral joint lines in both knees. Range motion is approximately 7-120 degrees bilaterally. After ChloraPrep was used on skin 20 mg Kenalog and 3 cc of 0.5% ropivacaine was injected into both knees. Impression: 73-year-old female who has rather severe bicompartmental osteoarthritis of the right knee and moderately severe lateral compartment arthritis of left. Shots continue to help with her pain. We against discussed surgery briefly. She will need to have her weight under 235 lb for BMI be under 40. She is going to continue to work on that. I will see her in 3 months. Not available 11/18/2023 16:25:15 02/17/2024 02/17/2024 HPI: Patient returns. She is here for cortisone injections into both of her knees. Last shots were 3 months ago. She does get good relief from the injections and wishes to continue with them. She is getting about 2 months good relief. She has severe medial compartment osteoarthritis in both knees. Physical exam: 73-year-old female alert. She walks with the cane. She has xcvn-mz-wekjhvdd effusions in both knees. Range motion is from 5-130 degrees bilaterally. She has tenderness over medial and lateral joint lines in both knees. After alcohol prep 20 mg Kenalog and 3 cc of 0.5% ropivacaine was injected into both knees. Impression: 73-year-old female who has rather severe osteoarthritis in both knees. Shots continue to give her good benefit. I will see her in 3 months. Not available 02/17/2024 14:44:15 Plan of Treatment Reminders Order Date Submit Date Provider Last Modified By Organization Details Last Modified Time Details Appointments None recorded. Lab None recorded. Referral birth attendant referral 2022 023 [email or web address] Farooq Cohn [facility], [address] [facility], [address], [place], [address], 3 12:15:42 Procedures injection/a spiration joint/bursa (PROC) 2023 024 [email or web address] In-Office Order, Internal Use Only DO Not Attach Compendium DO Not Attach Compendium, Do Not Delete/merge, [id number] 4 15:28:12 injection/a spiration joint/bursa (PROC) - in office procedure, administere d by provider 2023 024 [email or web address] In-Office Order, Internal Use Only DO Not Attach Compendium DO Not Attach Compendium, Do Not Delete/merge, [id number] 4 14:52:59 injection/a spiration joint/bursa (PROC) - in office procedure, administere d by provider 2022 023 [email or web address] In-Office Order, Internal Use Only DO Not Attach Compendium DO Not Attach Compendium, Do Not Delete/merge, [id number] 3 17:22:55 Surgeries None recorded. Imaging XR, knee 2022 023 [email or web address] [facility] [place], [address], [place], [address], 3 17:22:55 XR, foot, 3 or more view 2022 023 [email or web address] [facility] [place], [address], [place], [address], 3 15:02:37 XR, foot, 3 or more view 2022 023 [email or web address] [facility] [place], [address], [place], [address], 3 15:02:37 XR, foot 2022 023 [email or web address] [facility] [place], [address], [place], [address], 3 12:15:43 Medication Orders bupivacaine HCl 0.5 % (5 mg/mL) injection solution 2023 024 Not available 4 15:39:04 Kenalog 10 mg/mL suspension for injection 2023 024 [email or web address] Not available 4 15:39:04 Kenalog 10 mg/mL suspension for injection 2023 024 [email or web address] [facility] [address], [id number] [place] [address], [address], 4 16:34:32 ropivacaine (PF) 5 mg/mL (0.5 %) injection solution 2023 024 [email or web address] [facility] [address], [address] [place] [address], [address], 4 14:13:49 Kenalog 10 mg/mL suspension for injection 2022 023 [email or web address] [facility] [address], [address] [place] [address], [address], 3 17:22:55 ropivacaine (PF) 5 mg/mL (0.5 %) injection solution [address] [facility], [id number] [place] [address], [address], 4 14:13:49 Patient TargetsNo targets recorded. Patient InstructionsNo instructions recorded. 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 [email or web address] [facility] [place] [address], [place], [address], 03/19/2023 16:40:39 05/06/20 23 XR, foot, 3 or more view No observ ation record ed. [email or web address] [facility] [place] [address], [place], [address], 05/06/2023 15:01:47 05/06/20 23 XR, foot, 3 or more view No observ ation record ed. [email or web address] [facility] [place] [address], [place], [address], 05/06/2023 15:02:36 08/21/20 23 XR, knee No observ ation record ed. [email or web address] [facility] [place] [address], [place], [address], 08/21/2023 11:35:17 Result Notes None recorded. Problems Name Problem SNOMED Code Status Onset Date Resolution Date Notes Provider Name and Address Organization Details Recorded Time Pain of right knee joint 2437685917811 00 Active 2022 [facility] Available [facility] 3 08:44:40 Osteoarthr itis of right knee joint 3511090708042 00 Active 2022 ANABELA Posada null, [facility] 3 09:43:03 Pain in right foot 0088109183018 07 Active 2022 Liat Thompson CMA null, [facility] 3 10:11:26 Obesity 880594467 Active 2022 Charmaine perez, [facility] 3 15:00:43 Sleep apnea 93840601 Active 2022 Charmaine perez, [facility] 3 15:01:11 Morbid obesity 805886131 Active 2022 Farooq Cohn DPM [address], [address], [place], [address] , [facility] 3 14:59:16 Osteoarthr itis 743270026 Active 2022 Farooq Cohn DPM [address], [address], [place], [address] , [facility] 3 14:59:28 Hammer toe 233897454 Active 2022 Farooq Cohn DPM [address], [address], [place], [address] , [facility] 3 14:59:57 Congenital pes planus 88302861 Active 2022 Farooq Cohn DPM [address] [facility], [address], [place], [address] , [facility] 3 15:00:25 Bilateral osteoarthr itis of knees 5518586378800 07 Active 2023 ANABELA Posada, [facility] 4 14:51:42 Problem Notes Documentation Provider Name and Address Organization Details Recorded Time Orthopedic Consult Note : [email or web address] [address], [facility] [address]WYGSFEQJama SANTANA (id #[id number], : 1950) Documents sent via fax will include the following message: This fax may contain sensitive and confidential personal health information that is being sent for the sole use of the intended recipient. Unintended recipients are directed to securely destroy any materials received. You are hereby notified that the unauthorized disclosure or other unlawful use of this fax or any personal health information is prohibited. To the extent patient information contained in this fax is subject to 42 CFR Part 2, this regulation prohibits unauthorized disclosure of these records. If you received this fax in error, please visit [email or web address] [email or web address] to notify the sender and confirm that the information will be destroyed. If you do not have internet access, please call to notify the sender and confirm that the information will be destroyed. Thank you for your attention and cooperation. [ID:[id number]] , Date: 08/21/2023RE: Jama Wing, Jeannette Bond MD, I would like to thank you for referring Jama Santana to me for consultation and evaluation of Right knee pain , on 08/21/2023. I have enclosed a copy of the office assessment and plan for your records. Once again, thank you for allowing me to participate in the care of this patient. Sincerely, Electronically Signed by: JAMES ALMONTE, NIDA Assessment/PlanHPI: Patient returns. She is here for cortisone injection right knee. Last shot was in December this year. Shot worked very well up until about 6 weeks ago. She has not worked on getting her weight down and is still too heavy to discuss surgical option on her knee. She wished to have another injection today. Physical exam: 73-year-old female alert pleasant. She walks with a cane. She has a palpable mild to moderate effusion in the right knee. She has very large legs both through the thigh and calf. She has moderate tenderness over the lateral joint line to palpation mild tenderness over the medial joint line to palpation. Range of motion is approximately 10-120 degrees.After ChloraPrep was used on the skin 20 mg Kenalog and 3 cc of 0.5% ropivacaine was injected into the right knee. Risk of infection discussed. Impression: 73-year-old female who has rather advanced osteoarthritis in the right knee. She is rsyq-vb-fmmm to the medial and lateral compartment. She was told last time she was here that she would need to have her weight at 235 lb or under for her BMI to be under 40. She is going to have to work on reducing caloric intake. She does go to the pool 5 days a week for aerobics which helps a lot for her. She can repeat cortisone injections as often as every 3 months. She will call she feels she needs additional injection. 20 minutes was spent treatment patient more than half of this in fskp-vi-lbzo conversation 1. Osteoarthritis of right knee nyrtbW35.11: Unilateral primary osteoarthritis, right knee Kenalog 10 mg/mL suspension for injection - in office Quantity: (20) mg Lot #: [id number] Route: Injection Exp Date: 08/02/2025 Administered INJECTION/ASPIRATION JOINT/BURSA (PROC) - Note to Provider: in office procedure, administered by providerPlace of service: OFFICE ropivacaine (PF) 5 mg/mL (0.5 %) injection solution - in office Quantity: (15) mg Lot #: [id number] Route: Injection Exp Date: 07/03/2025 Administered XR, KNEE XR, KNEE three views of the right knee taken in the office show severe medial and compartment osteoarthritis. Moderate patellofemoral osteoarthritis. Of note she has moderately severe lateral compartment osteoarthritis in the left knee and xslk-mv-kjhj patellofemoral osteoarthritis in the left knee. Return to Office Patient will return to the office as needed ANABELA Posada, [place] [facility] 08/31/2023 09:43:57 Orthopedic Consult Note : [facility] [address], [facility] [address]ACZALCPJama SANTANA (id #[id number], : 1950) Documents sent via fax will include the following message: This fax may contain sensitive and confidential personal health information that is being sent for the sole use of the intended recipient. Unintended recipients are directed to securely destroy any materials received. You are hereby notified that the unauthorized disclosure or other unlawful use of this fax or any personal health information is prohibited. To the extent patient information contained in this fax is subject to 42 CFR Part 2, this regulation prohibits unauthorized disclosure of these records. If you received this fax in error, please visit [email or web address] to notify the sender and confirm that the information will be destroyed. If you do not have internet access, please call to notify the sender and confirm that the information will be destroyed. Thank you for your attention and cooperation. [ID:[id number]] , Date: 4RE: Jama Bobygilbertojamal, DearPfaye Bond MD, I would like to thank you for referring Jama Santana to me for consultation and evaluation of Bilateral knee pain , on 11/18/2023. I have enclosed a copy of the office assessment and plan for your records. Once again, thank you for allowing me to participate in the care of this patient. Sincerely, Electronically Signed by: JAMES ALMONTE PASUP Assessment/PlanHPI: Patient returns. She is here for cortisone injections in both her knees. Last shots were 3 months ago. She has severe bicompartmental osteoarthritis in the right knee and moderately severe lateral arthritis in the left. She is not a surgical candidate due to weight. She is not on any anti-inflammatories due to history of gastric bypass. Shots continue to give her good benefit and she wishes to continue with these. Physical exam: 73-year-old female alert pleasant. She walks with a cane. She has mild palpable effusions in both knees. She has mild chronic edema in both lower extremities. She has hzxg-es-mowlzwbg tenderness to palpation both medial and lateral joint lines in both knees. Range motion is approximately 7-120 degrees bilaterally.After ChloraPrep was used on skin 20 mg Kenalog and 3 cc of 0.5% ropivacaine was injected into both knees. Impression: 73-year-old female who has rather severe bicompartmental osteoarthritis of the right knee and moderately severe lateral compartment arthritis of left. Shots continue to help with her pain. We against discussed surgery briefly. She will need to have her weight under 235 lb for BMI be under 40. She is going to continue to work on that. I will see her in 3 months. 1. Bilateral osteoarthritis of ysvyvJ42.0: Bilateral primary osteoarthritis of knee Kenalog 10 mg/mL suspension for injection - in office Quantity: (20) mg Lot #: [id number] Route: Injection Exp Date: 10/02/2025 Administered INJECTION/ASPIRATION JOINT/BURSA (PROC) - Note to Provider: in office procedure, administered by providerPlace of service: OFFICE ropivacaine (PF) 5 mg/mL (0.5 %) injection solution - in office Quantity: (15) mg Lot #: [id number] Route: Injection Exp Date: 12/03/2026 Administered Return to Office JAMES Almonte for Any 5 at [facility] [place] on 02/17/2024 at 01:30 PM ANABELA Posada [place] [facility] 11/20/2023 13:36:31 Orthopedic Consult Note : [facility] [address] [facility] [address], [place] [address]QCIKIQFJama SANTANA (id #[id number], : 1950) Documents sent via fax will include the following message: This fax may contain sensitive and confidential personal health information that is being sent for the sole use of the intended recipient. Unintended recipients are directed to securely destroy any materials received. You are hereby notified that the unauthorized disclosure or other unlawful use of this fax or any personal health information is prohibited. To the extent patient information contained in this fax is subject to 42 CFR Part 2, this regulation prohibits unauthorized disclosure of these records. If you received this fax in error, please visit [email or web address] to notify the sender and confirm that the information will be destroyed. If you do not have internet access, please call to notify the sender and confirm that the information will be destroyed. Thank you for your attention and cooperation. [ID:[id number]] , Date: 4RE: Jeannette Sam MD, I would like to thank you for referring Jama Santana to me for consultation and evaluation of Bilateral knee pain , on 02/17/2024. I have enclosed a copy of the office assessment and plan for your records. Once again, thank you for allowing me to participate in the care of this patient. Sincerely, Electronically Signed by: JAMES ALMONTE, [facility] Assessment/PlanHPI: Patient returns. She is here for cortisone injections into both of her knees. Last shots were 3 months ago. She does get good relief from the injections and wishes to continue with them. She is getting about 2 months good relief. She has severe medial compartment osteoarthritis in both knees. Physical exam: 73-year-old female alert. She walks with the cane. She has sgzw-bl-ofpedryg effusions in both knees. Range motion is from 5-130 degrees bilaterally. She has tenderness over medial and lateral joint lines in both knees.After alcohol prep 20 mg Kenalog and 3 cc of 0.5% ropivacaine was injected into both knees. Impression: 73-year-old female who has rather severe osteoarthritis in both knees. Shots continue to give her good benefit. I will see her in 3 months. 1. Bilateral osteoarthritis of vumziL50.0: Bilateral primary osteoarthritis of knee bupivacaine HCl 0.5 % (5 mg/mL) injection solution - in office Quantity: (15) mg Route: Injection Kenalog 10 mg/mL suspension for injection - in office Quantity: (20) mg Route: Injection INJECTION/ASPIRATION JOINT/BURSA (PROC) Return to Office Patient will return to the office as needed ANABELA Posada, [place] [facility] 02/17/2024 15:39:37 Procedures Surgical History Date Name Laterality Status Provider Name and Address Organization Details Recorded Time 021 Date of Last Pap Smear completed Not Available [facility] 12/31/2022 08:42:25 019 Most Recent Mammogram completed Not Available [facility] 12/31/2022 08:42:25 014 Gastrointestinal Surgery completed Not Available [facility] 12/31/2022 08:42:26 973 Cholecystectomy completed Not Available [facility] 12/31/2022 08:42:26 [employer] Surgery completed Not Available [facility] 12/31/2022 08:42:26 Imaging Results None recorded. Procedure Notes None recorded. Medical Equipment None Reported. Allergies Allergen ID Allergen Name Allergen Category Reaction Reaction Severity Criticality Documentation Date Start Date Code Code System Note Provider Name and Address Organization Details Recorded Time trimethop rim medicatio n Not available Not available Not available 12/31/2022 06855 RxNorm Not Available [facility] 3 08:47:34 15955 sulfameth izole Not available Not available Not available Not available 12/31/2022 24722 RxNorm Not Available [facility] 3 08:47:34 14885 Substance with quinolone structure and antibacte rial mechanism of action (substanc e) medicatio n Not available Not available Not available 12/31/2022 67913 2000 SNOMED Not Available [facility] 3 08:47:34 14148 levofloxa isela medicatio n Not available Not available Not available 12/31/2022 74843 RxNorm Not Available [facility] 3 08:47:34 digoxin medicatio n Not available Not available Not available 12/31/2022 3407 RxNorm Not Available [facility] 3 08:47:34 Medications Name Sig Start Date Stop Date Status Note LastModified by Organization Details LastModified Time amoxicillin 500 mg capsule 07/11 completed Not Available Not Available Not Available fluconazole 100 mg tablet active Not Available Not Available Not Available silver sulfadiazin e 1 % topical cream active Not Available Not Available Not Available prednisone 10 mg tablet TAKE 4 TABLETS BY MOUTH ONCE DAILY ON DAYS 1-4, THEN 3 TABS DAILY ON DAYS 5-8, THEN 2 TABS DAILY ON DAYS 9-11, THEN 1 TAB DAILY ON DAYS 12-14 02/16 completed Not Available Not Available Not Available nabumetone 750 mg tablet 01/05 completed Not Available Not Available Not Available clindamycin HCl 300 mg capsule TAKE 1 CAPSULE BY MOUTH FOUR TIMES DAILY 03/11 completed Not Available Not Available Not Available cetirizine 10 mg tablet TAKE 1 TABLET BY MOUTH DAILY NEEDED 02/16 completed Not Available Not Available Not Available azithromyci n 250 mg tablet TAKE 2 TABLETS BY MOUTH ON DAY 1, AND THEN TAKE 1 TABLET BY MOUTH ONCE A DAY ON DAY 2 THROUGH DAY 5 03/11 completed Not Available Not Available Not Available ofloxacin 0.3 % eye drops INSTILL 1 DROP THREE TIMES DAILY INTO SURGICAL EYE STARTING 2 DAYS PRIOR TO SURGERY AND CONTINUE DAY AFTER SURGERY UNTIL GONE 03/11 completed Not Available Not Available Not Available fluconazole 150 mg tablet TAKE 1 TABLET BY MOUTH A SINGLE DOSE. TAKE SECOND TABLET 72 HOURS LATER IF SYMTOMS PERSIST. 02/16 completed Not Available Not Available Not Available valacyclovi r 1 gram tablet TAKE 1 TABLET BY MOUTH THREE TIMES DAILY FOR 10 DAYS 02/16 completed Not Available Not Available Not Available hydrocodone 5 mg-acetamin ophen 325 mg tablet TAKE 1 TABLET BY MOUTH DAILY NEEDED FOR PAIN 03/11 completed Not Available Not Available Not Available meloxicam 15 mg tablet 01/05 completed Not Available Not Available Not Available bupivacaine HCl 0.5 % (5 mg/mL) injection solution in office 2023 active NCD:5 5150- 250-5 0 [id number] EXP: 26 Not Available Not Available Not Available prednisone 20 mg tablet TAKE 1 TABLET BY MOUTH ONCE DAILY FOR 5 DAYS 02/16 completed Not Available Not Available Not Available amlodipine 2.5 mg tablet active Not Available Not Available Not Available ciprofloxac in 250 mg tablet 07/11 completed Not Available Not Available Not Available sulfamethox azole 800 mg-trimetho prim 160 mg tablet 07/11 completed Not Available Not Available Not Available tramadol 50 mg tablet TAKE 1 TABLET BY MOUTH EVERY 6 HOURS NEEDED FOR PAIN 12/10 completed Not Available Not Available Not Available Diovan 320 mg tablet active Not Available Not Available No t Available ketorolac 0.5 % eye drops INSTILL 1 DROP THREE TIMES DAILY INTO SURGICAL EYE STARTING 2 DAYS BEFORE SURGERY THEN CONTINUE 3 TIMES PER DAY IN SURGICAL EYE ONLY STARTING DAY AFTER SURGERY UNTIL GONE 03/11 completed Not Available Not Available Not Available potassium chloride ER 20 mEq tablet,exte nded release(par t/cryst) TAKE 1 TABLET BY MOUTH ONCE DAILY 12/10 completed Not Available Not Available Not Available prednisolon e acetate 1 % eye drops,suspe nsion INSTILL 1 DROP THREE TIMES DAILY INTO SURGICAL EYE STARTING 2 DAYS BEFORE SURGERY IN SURGICAL EYE ONLY. THEN CONTINUE 3 TIMES PER DAY STARTING DAY AFTER SURGERY UNTIL GONE 03/11 completed Not Available Not Available Not Available gentamicin 0.3 % eye drops 12/10 completed Not Available Not Available Not Available Kenalog 10 mg/mL suspension for injection in office 2023 active [facility]: 0003- 0494- 20 lot:8 17084 2 EXP: Not Available Not Available Not Available meclizine 25 mg tablet TAKE 1 TABLET BY MOUTH 4 TIMES DAILY NEEDED FOR DIZZINESS active Not Available Not Available No t Available phenazopyri dine 100 mg tablet 12/10 completed Not Available Not Available Not Available benzonatate 100 mg capsule 07/11 completed Not Available Not Available Not Available levothyroxi ne 125 mcg tablet TAKE 1 TABLET BY MOUTH ONCE DAILY active Not Available Not Available No t Available neomycin-po lymyxin-dex ameth 3.5 mg/mL-10,00 0 unit/mL-0.1 % eye drops INSTILL 4 DROPS INTO LEFT EAR EVERY 8 HOURS FOR 7 DAYS 02/16 completed Not Available Not Available Not Available codeine 10 mg-guaifene sin 100 mg/5 mL oral liquid 07/11 completed Not Available Not Available Not Available furosemide 20 mg tablet TAKE 1 TABLET BY MOUTH ONCE DAILY 12/10 completed Not Available Not Available Not Available cefuroxime axetil 500 mg tablet active Not Available Not Available No t Available methylpredn isolone 4 mg tablets in a dose pack TAKE BY MOUTH DIRECTED ON INSIDE OF PACKAGE 12/10 completed Not Available Not Available Not Available fluticasone propionate 50 mcg/actuati on nasal spray,suspe nsion USE 2 SPRAY(S) IN EACH NOSTRIL ONCE DAILY active Not Available Not Available No t Available doxycycline hyclate 100 mg tablet 01/05 completed Not Available Not Available Not Available levothyroxi ne 112 mcg tablet TAKE 1 TABLET BY MOUTH ONCE DAILY 03/11 completed Not Available Not Available Not Available amoxicillin 875 mg-potassiu m clavulanate 125 mg tablet TAKE 1 TABLET BY MOUTH EVERY 12 HOURS WITH FOOD FOR 10 DAYS 02/16 completed Not Available Not Available Not Available amoxicillin 500 mg-potassiu m clavulanate 125 mg tablet 01/05 completed Not Available Not Available Not Available oxycodone 5 mg tablet TAKE 1 TABLET BY MOUTH EVERY 8 HOURS NEEDED FOR PAIN 02/16 completed Not Available Not Available Not Available metaxalone 800 mg tablet 01/05 completed Not Available Not Available Not Available hydrocodone 7.5 mg-acetamin ophen 325 mg/15 mL oral solution active Not Available Not Available Not Available nitrofurant oin monohydrate /macrocryst als 100 mg capsule active Not Available Not Available Not Available valsartan 320 mg-hydrochl orothiazide 25 mg tablet active Not Available Not Available Not Available ropivacaine (PF) 5 mg/mL (0.5 %) injection solution in office 02/16 completed Not Available Not Available Not Available Vitals Date Recorded Body height Provider Name an d Address Organization Details Last Updated DateTime 11/18/2023 165.1 cm Leonora Zacarias Katia [facility] 11/18/2023 14:51:25 Date Recorded Body height Provider Name an d Address Organization Details Last Updated DateTime 02/17/2024 165.1 cm Leonoar Zacarias Katia [facility] 02/17/2024 14:13:08 Date Recorded Body height Provider Name an d Address Organization Details Last Updated DateTime 03/11/2023 165.1 cm Leonora Zacarias [facility] 03/11/2023 09:41:30 Date Recorded Body mass index (BMI) Body weight Provider Name and Address Organization Details Last Updated DateTime 05/04/2023 41.6 kg/m2 478261.83 g Charmaine Ng [facility] 05/04/2023 15:00:02 Date Recorded Body height Heart rate Respiratory rate Oxygen saturation Systolic And Diastolic Provider Name and Address Organization Details Last Updated DateTime 165.1 cm 84 /min 14 /min 98 % 131/72 mm[Hg] Dominique Carlin [facility] 15:04:03 Date Recorded Body height Provider Name an d Address Organization Details Last Updated DateTime 08/21/2023 165.1 cm Leonora Zacarias [facility] 08/21/2023 10:48:27 Social History Question Answer Notes LastModified by [employer] Details LastModified Time Tobacco Smoking Status Never Smoker Not Available [facility] 12/31/2022 08:42:17 What Is Your Level Of Caffeine Consumption? Occasional [id number] Information not available 12/31/2022 What Is Your Relationship Status? [id number] Information not available 12/31/2022 Sex: Unknown Functional Status Question Answer Note LastModified by [employer] Details LastModified Time What is your level of alcohol consumption? None [id number] Information not available 12/31/2022 What is your exercise level? Moderate [id number] Information not available 12/31/2022 Mental Status None recorded. Family History Relationship Description Onset Age of this Age Resolved Age Notes LastModified by Organization Details LastModified Time Father Hypertensive disorder [id number] Not available 12/31/2022 08:42:27 Mother Hypertensive disorder [id number] Not available 12/31/2022 08:42:27 Mother Osteoporosis [id number].0 30 [id number] Not available 12/31/2022 08:42:27 Mother Blood coagulation disorder [id number] Not available 12/31/2022 08:42:27 Mother Diabetes mellitus [id number] Not available 12/31/2022 08:42:27 Son Harmful pattern of use of alcohol [id number] Not available 12/31/2022 08:42:27 Maternal Grandfather Family history of stroke [id number].349 [id number] Not available 12/31/2022 08:42:27 Paternal Grandfather Family history of malignant neoplasm [id number] Not available 12/31/2022 08:42:27 Unspecified Relation Diabetes mellitus great grandm a Not available 05/04/2023 15:02:19 Unspecified Relation Cerebrovascu lar accident grandp a Not available 05/04/2023 15:02:31 Unspecified Relation Arthritis grandm a Not available 05/04/2023 15:02:58 Unspecified Relation Heart disease grandp arents Not available 05/04/2023 15:03:27 Father Arthritis Not available 05/04/2023 15:02:58 Father Heart disease Not available 2022 15:03:27 Mother Arthritis Not available 05/04/2023 15:02:58 Medical History Condition Response ARTHRITIS Y ULCERS Y OBESITY Y BLOOD CLOTS Y ANEMIA/BLOOD DISORDER Y ALLERGIES/HAYFEVER Y HYPERTENSION Y Gynecological History Statement/Question Response Abnormal Pap N Date of Last Colonoscopy Most Recent Bone Density Date of Last Pap Smear 07/15/2021 Current Control Method Menopause Age at Menarche 8 Most Recent Mammogram 08/11/2019 Breast Problems no Obstetrics History GPAL:G 3 P 3 0 0 3 Type Value Full Term 3 Living 3 Total 3 Immunizations Vaccine Type Date Status Note Provider Nam e and Address Organization Details Recorded Time COVID-19, mRNA, LNP-S, PF, 100 mcg/0.5mL dose or 50 mcg/0.25mL dose 12/11/2020 completed Not Available [facility] 08:47:28 Past Encounters Encounter ID Performer Location Encounter Start Date Encounter Closed Date Diagnosis/Indication Diagnosis SNOMED-CT Code Diagnosis ICD10 Code Diagnosis IMO Codes Diagnosis Note [id number] [facility] IGRATION_ DEFAULT_1 _1 , 07/15/2021 00:00:00 07/15/2021 17:04:43 [id number] Jonatan Bond MD [facility] [address] [place] [address] 12/10/2022 00:00:00 12/10/2022 10:55:03 [id number] Jonatan Bond MD [facility] [address] [place] [address] 03/11/2023 09:37:21 03/24/2023 12:15:42 Osteoarthritis of right knee joint 5918415493 23417 M17.11 Pain in right foot 84007 34656 17120 M79.671 [id number] Farooq Cohn DPM [facility] [address] [place] [address] 05/04/2023 14:53:31 05/11/2023 10:18:13 Morbid obesity 610665493 E66.01 recommend weight loss Congenital pes planus 23 916302 Q66.51 Q66.52 bilateral feetrecomm end custom orthoticsx -rays reviewed with the patient Osteoarthritis 555994760 M19.90 bilateral feetRecomm end supportive shoe gear such as new balanceRec ommend orthotics- - Rx custom orthotics today Hammer toe 488699306 M20 .41 M20.42 reviewed conservati ve and surgical optionsrec ommend continuing conservati ve therapyif becomes problemati c patient may need surgical interventi on [id number] Jonatan Bond MD [facility] [address] [place] [address] 08/21/2023 10:41:19 08/21/2023 11:40:32 Osteoarthritis of right knee joint 2446285884 46632 M17.11 [id number] Jonatan Bond MD [facility] [address] [place] [address] 11/18/2023 14:48:45 11/23/2023 14:42:14 Bilateral osteoarthritis of knees 6184220125 01413 M17.0 [id number] Cecilio Langston MD [facility] [address] [place] [address] 02/17/2024 13:53:48 02/17/2024 15:06:01 Bilateral osteoarthritis of knees 4765093705 95234 M17.0 Health Concerns Section Related Observation LastModified by Organization Detai ls LastModified Time None Recorded Concern Status LastModified by Organization Details LastModified Time None Recorded Advance Directives Directive None Recorded Payers Insurance Date Sequence Insurance Name Policy Number Policy Shah Covered Member ID Shah Member ID Guarantor Name 02/14/2024 1 [place] Jama Santana [id number] Jama Santana 02/23/2024 2 [employer] F Jama Santana [id number] Jama Santana Notes Date Note Type Note Provider Name and Address Organization Details Recorded Time 03/11/2023 text/html Patient returns for 3 month follow-up regarding her right knee. Her last cortisone shot was December 10. X-rays from 03/24/2020 to demonstrate severe medial lateral compartment osteoarthritis and moderate patellofemoral arthritis. She had excellent relief in the right knee from cortisone shot at that time and continues to have no pain in the right knee just a mild stiffness feeling with certain activities. She continues to have extreme obesity. She is 5 ft 5 in height 266 lb her BMI is 44.3. She has not lost any weight since last visit. I have talked her about the important of which weight loss by decreasing daily caloric intake. At some point she may be faced with knee replacement and we we would require hip BMI to be under 40 which would correspond with a weight of approximately 235 lb before considering surgery.She does have a history of gastric bypass surgery in the past. She engages in water aerobics exercises and there is a lot of jumping involved. She participates in his activity 5 days a weekHer chief complaint today is pain in the center of the forefoot. She points to the dorsum of the 3rd metatarsal shaft. she is using a cane today mostly because of her foot pain. Jonatan Bond MD [address] [facility] [address], [place], [address], [employer] 03/19/2023 16:43:43 05/04/2023 text/html . Patient is a 73-year-old female who presents to the office with multiple complaints. Patient is morbidly obese has bilateral foot pain and denies any recent injury. Patient states when she is walking she has pain in her feet. Patient has no specific area of tenderness and states it is about the whole midfoot area. On the examination she does have a small palpable lump along the dorsal aspect of the talus upon x-ray review she has a large spur the dorsal talus. Patient was reviewed surgical options and denies wanting any surgery. Patient also has pain along the 5th dorsal cuboid area again x-rays were performed and no significant cuboid changes were identified. Patient does have moderate talonavicular arthritis and spurring of the heel secondary to pes planus. Patient denies any other pedal complaints. Farooq Cohn DPM [address] [facility] [address], [place], [address], [employer] 05/11/2023 08:37:59 OBGyn Episode No OBEpisode recorded.
[2025-10-30 11:18] LABS: EDUAAPPEAR Clear; EDUABILI Negative (Negative); EDUABLOOD 2+ (Negative); EDUACOLOR1 Yellow; EDUAGLUCOSE Negative (Negative); EDUAKETONE Negative (Negative); EDUALEUKO Negative (Negative); EDUANITRATE Negative (Negative); EDUAPH 5.5; EDUAPROTEIN Negative (Negative); EDUASPGRAVITY 1.005; EDUAUROBILI 0.2
--- NOTE | 2025-10-30 11:46 | ED_ITS ---
HPI - Female Genitourinary General Chief complaint: Vaginal Bleeding Stated complaint: Vaginal Bleeding Time Seen by Provider: 10/30/25 11:00 Source: patient and RN notes reviewed Mode of arrival: ambulatory Limitations: no limitations History of Present Illness HPI Narrative: 75 year old female patient presents today initially stating, I'm having bleeding from my vagina. After initial questioning, patient reports blood x3 with wiping only, and is not sure if it is originating from her vagina or bladder. Symptoms began yesterday morning associated with mild frequency and dysuria. Denies abdominal pain, back pain, fever, weakness or unexplained weight loss. Patient is also complaining of a 2 week history of maxillary sinus discomfort, nasal congestion, scratchy throat and mild cough. She has been using NyQuil in Flonase. Related Data Home Medications ?Medication ?Instructions ?Recorded ?Confirmed ?Last Taken ?Type calcium carbonate (Calcium 600) 600 mg PO DAILY 07/13/25 Unknown History acetaminophen 500 mg tablet 1,000 mg PO Q6H 09/16/23 0 07/13/25 Unknown History (Tylenol Extra Strength) dietary supplement cap PO 09/16/23 07/13/25 Unk nown History eatagwha-efdtkmdc-dctk 45 mg-folic cap PO 09/16/2309/26 Unknown History acid 800 mcg-vit K 120 mcg capsule (Bariatric Multivitamins) cranberry 500 mg capsule 500 mg PO BID 06/01/2407/13 Unknown History celecoxib 200 mg capsule mg PO 09/22/24 07/13/25 Unkn own History furosemide 20 mg tablet (Lasix) 20 mg PO BID 06/07/25 07/13/25 Unknown History omeprazole 20 mg capsule,delayed 20 mg PO DAILY 07/13/25 Unknown History release Allergies Allergy/AdvReac Type Severity Reaction Status Date / Time digoxin Allergy Unknown Palpitation Verified 10/30/25 10:52 s levofloxacin Allergy Unknown Palpitation Verified 10/30/25 10:52 s doxycycline AdvReac Mild Itching Verified 10/30/25 10:52 Quinolones AdvReac Mild Itching Verified 10/30/25 10:52 sulfamethizole AdvReac Mild Hives Verified 10/30/25 10:52 trimethoprim AdvReac Mild itching Verified 10/30/25 10:52 plastics AdvReac Mild itching Uncoded 07/13/25 12:49 PMFSH Past Medical History Medical History Cholecystectomy planned Vertigo Postmenopausal Screening for colon cancer ANGEL on CPAP Primary osteoarthritis of both knees Surgical History Surgical History History of cholecystectomy History of bladder surgery Gastric bypass status for obesity Family History Family History Mother Hypertension Family history of diabetes mellitus in first degree relative Family history of coronary artery disease Father Hypertension Family history of coronary artery disease Family history of heart disease in male family member before age 55 Grandparent Family history of malignant neoplasm Family history of heart disease in male family member before age 55 Sibling Pancreatic cancer Other Family history of cardiovascular disease Social History Social History Smoking status: Never smoker Second hand tobacco smoke exposure: Yes Alcohol intake: never Substance use: never Substance use type: does not use Lack of Transportation: No Lack of Food: Never True Current Housing: I Have Housing Concerned About Future Housing: No Difficulty Paying Gas/Electric Bills: No Difficulty Paying for Meds: Decline to Answer Currently Unemployed: No Education: High School Diploma/GED Difficulty w/ Childcare or Family Care: No Living arrangements: with family Occupation/Education: retired 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 Please see nursing chart for further information. There is no relevant family history pertinent to the presenting complaint Exam Narrative: GENERAL: Well-appearing, well-nourished, and in no acute distress. HEAD: Normocephalic, atraumatic. EYES: EOMI. No redness or drainage. Conjunctivae normal. ENT: Mucous membranes pink and moist. Nares mildly congested. No rhinorrhea. TMs normal bilaterally. Throat normal. Uvula midline. NECK: Normal AROM. Supple. No lymphadenopathy. CHEST: No respiratory distress. Clear to auscultation. HEART: Regular rate and rhythm. No murmur appreciated. ABDOMEN: Soft, nontender, nondistended, normal active bowel sounds. -CVAT EXTREMITIES: Normal range of motion. No edema. SKIN: Warm, dry, no rash. Capillary refill normal. Normal skin turgor. NEURO: No focal deficits. Alert and oriented x3. Gait steady. PSYCH: Normal affect. No signs of depression or anxiety. Course Course Level of Care: Express Care Visit Vital Signs Vital signs: Vital Signs Temperature 97.6 F 10/30/25 10:49 Pulse Rate 63 10/30/25 10:49 Respiratory Rate 16 10/30/25 10:49 Blood Pressure 156/86 H 10/30/25 10:49 Pulse Oximetry 98 10/30/25 10:49 Oxygen Delivery Room Air 10/30/25 10:49 Temperature 97.6 F 10/30/25 10:49 Pulse Rate 63 10/30/25 10:49 Respiratory Rate 16 10/30/25 10:49 Blood Pressure 156/86 H 10/30/25 10:49 Pulse Oximetry 98 10/30/25 10:49 Oxygen Delivery Room Air 10/30/25 10:49 Reviewed [facility] Narrative Medical decision making narrative: 75 year old female patient presents today initially stating, I'm having bleeding from my vagina. After initial questioning, patient reports blood x3 with wiping only, and is not sure if it is originating from her vagina or bladder. Symptoms began yesterday morning associated with mild frequency and dysuria. Denies abdominal pain, back pain, fever, weakness or unexplained weight loss. Patient is also complaining of a 2 week history of maxillary sinus discomfort, nasal congestion, scratchy throat and mild cough. She has been using NyQuil in Flonase. Upon exam, patient is mildly congested nasal passages. Urinalysis shows 2+ blood, but is otherwise normal. Culture pending. Will treat patient's upper respiratory symptoms as well as her hematuria with presumed UTI with Augmentin. Patient agrees with plan. Vital signs stable. Anticipatory guidance given. Differential Diagnosis Differential Diagnosis: Vaginal bleeding, UTI, upper respiratory infection, sinusitis Lab Data [facility] Lab Attestation statement: I personally reviewed the patient's lab results. Labs: Lab Results 10/30/25 Range/Units 11:16 POC Urine Color Yellow POC Urine Clarity Clear POC Urine pH 5.5 POC Ur Specif [place] 1.005 POC Urine Protein Negative (Negative) POC Ur Glucose (UA) Negative (Negative) POC Urine Ketones Negative (Negative) POC Urine Blood 2+ (Negative) POC Urine Nitrite Negative (Negative) POC Urine Bilirubin Negative (Negative) POC Urine Urobilinogen 0.2 POC U Leukocyte Esteras Negative (Negative) Critical Care Time Critical Care Time Critical Care Time: No Discharge Plan Discharge Clinical Impression: UTI (urinary tract infection) Qualifiers: Urinary tract infection type: acute cystitis Hematuria presence: with hematuria Qualified Code(s): N30.01 - Acute cystitis with hematuria Sinusitis Qualifiers: Sinusitis location: frontal Chronicity: acute Recurrence: non-recurrent Qualified Code(s): J01.10 - Acute frontal sinusitis, unspecified Patient Disposition: Home Condition: Stable Instructions: Antibiotic Form, Urinary Tract Infection in Women (DC), Sinusitis (ED) Additional Instructions: Your urine shows possible infection today. Take Augmentin as prescribed until gone for both your blood in the urine sample and your upper respiratory symptoms. Your urine will be sent of for a culture to identify what type of bacteria is causing your infection. If the culture shows that your medication will not get rid of your infection, you will be notified and a new antibiotic will be called in for you. If your symptoms worsen to include fever, sweats, chills, nausea, vomiting, severe abdominal or back pain, please go to the ER for further evaluation. Patient Language: Afghan Prescriptions: New amoxicillin-pot clavulanate 875-125 mg tablet 1 tablet PO Q12H 7 Days Qty: 14 0RF No Action calcium carbonate [Calcium 600] 600 mg calcium (1,500 mg) tablet 600 mg PO DAILY cranberry 500 mg capsule 500 mg PO BID Rx Instructions: administer with meals omeprazole 20 mg capsule,delayed release(DR/EC) 20 mg PO DAILY furosemide [Lasix] 20 mg tablet 20 mg PO BID Zyrtec 10 mg capsule 10 mg PO DAILY PRN (Reason: allergy symptoms) Qty: 90 1RF amoxicillin-pot clavulanate 875-125 mg tablet 1 tablet PO BID Qty: 14 0RF tramadol 50 mg tablet 50 mg PO Q6H PRN (Reason: pain) Qty: 20 0RF Bariatric Multivitamins 45 mg iron- 800 mcg-120 mcg capsule PO dietary supplement Capsule PO acetaminophen [Tylenol Extra Strength] 500 mg tablet 1,000 mg PO Q6H celecoxib 200 mg capsule PO levothyroxine 125 mcg tablet See Rx Instructions .ROUTE .COMPLEX Qty: 90 1RF Dose Instruction: Take 1 tablet by mouth once daily Rx Instructions: Take 1 tablet by mouth once daily fluticasone propionate 50 mcg/actuation spray,suspension 2 spray intranasal DAILY Qty: 16 0RF Rx Instructions: administer into each nostril Follow-up/Referrals: Miguel Boo MD [Primary Care Provider, Family Practice] Time of Disposition: 11:30
== END 2025-10-30 11:34 | disposition home or self-care (01) ==
PROVIDERS: Emergency Provider Nurse Practitioner; PCP Family Medicine
DX: N30.01 Acute cystitis with hematuria (principal); J01.10 Acute frontal sinusitis, unspecified
CPT/HCPCS: 81003; 87086; 99213; G0463